=== PATIENT | male | born 1985 | race African-American/Black ===

== ENCOUNTER 2017-02-07 21:48 | Emergency (ER) | payer SELFPAY ==
[~2017-02-07] VITALS: Ht 195.6 cm; Wt 72.0 kg
[2017-02-07 21:51] VITALS: TEMP 37.2; Ht 195.6 cm; Wt 72.0 kg
[2017-02-07] MEDS ORDERED: PENICILLIN HOME PACK 500MG (4 DOSES)BTL PO STA (22:09)
[2017-02-07] MEDS ORDERED: PENI500T2 PO (22:15)
[2017-02-07] MEDS ORDERED: BENZ10GE38 DT (22:15)
[2017-02-07] MEDS ORDERED: TYLENOL #3 HOME PACK PO ONE (22:15)
--- NOTE | 2017-02-07 22:16 | EMERGENCY ROOM VISIT NOTE ---
ED Visit Note First contact with patient: 21:59 CHIEF COMPLAINT: Toothache HISTORY OF PRESENT ILLNESS: This 31-year-old male patient presented to the emergency department, ambulatory, with his family, with a progressive toothache for past 2 days. The patient believes it is coming from the left lower molar which is broken in half. The patient states the fracture happened approximately one year ago. The pain is now steady and severe and radiates to the face. The patient does not have a dentist appointment set up, but states he is planning to contact a dentist tomorrow. They rate their pain a 10/10 and the ibuprofen and Tylenol they have been taking has not relieved the pain. Denies facial swelling or fever. The patient denies any discharge from the mouth. REVIEW OF SYSTEMS: A 6 system review of systems was completed with positives and pertinent negatives listed in the HPI. ALLERGIES: None MEDICATIONS: None PMH: None SOCIAL HISTORY: The patient lives locally with family. He denies drug, alcohol , tobacco use. PHYSICAL EXAM: Vitals are noted on the nurse's note and reviewed by myself. Vital signs stable. Temperature 37.2C orally. GENERAL: This is a 31-year-old black male, in no acute distress, nondiaphoretic, well-developed well- nourished. Mouth: The #18 tooth is very carious and the gum is swollen and tender around it, without any discharge. The tooth is broken in half, and half of it is no longer present. There is some swelling of the gum surrounding the tooth, but no obvious abscess or drainage. The remainder of the pharynx and tonsils are without erythema, edema, or exudate. The airway is patent. There is no facial swelling, cervical or submandibular lymphadenopathy. The patient appears uncomfortable and in pain. The patient has overall poor dental hygiene. EARS: External auditory canals clear, tympanic membranes pearly storey without erythema or effusion bilaterally. ED COURSE: The patient was seen and evaluated as above. I did apply benzocaine to the tooth and gum to help with pain relief. Discussion with the patient regarding the importance of follow-up with a dentist, and the patient understands. The patient was provided with a prescription for Tylenol with Codeine as well as penicillin. The patient was given home packs of these medications and a prescription for penicillin and benzocaine. The patient was discharged home in good condition. I attest that I have personally reviewed the patient's current medication list. Patient was found to have normal blood pressure on screening and does not require follow-up. DIFFERENTIAL DIAGNOSIS: Dental abscess, odontalgia, acute sinusitis, acute otitis media, cellulitis, malignancy, and others DIAGNOSIS: Dental abscess, odontalgia DISCHARGE INSTRUCTIONS & TREATMENT: You have been treated in the Emergency Department for Dental Pain. You have been prescribed Tylenol #3 to be used for pain control. This is a narcotic medication. You cannot drive or consume alcohol while on this medicine. This medicine should only be used for pain that cannot be controlled with [id number]-[id number] pain medicines. You were prescribed Pen-V K to be taken 4 times daily. This is an antibiotic. All antibiotics have the potential to cause diarrhea. Stop this medication and contact a medical provider if you were to develop any significant adverse side effects including: wheezing, shortness of breath, passing out, vomiting, or a diffuse rash. Always take antibiotics as directed and COMPLETE the ENTIRE course regardless of the improvement of your symptoms. For pain control, you can use the following fher-vtm-tsqqgzq medicines (if >12 yo): Ibuprofen(Motrin, Advil) may be used for fever or pain. Use 600mg every six hours as needed. Take with food. Avoid using more than 2400mg in a 24 hour period. Do not use 2400mg per day for more than three consecutive days without physician direction. Prolonged inappropriate use can lead to stomach upset or ulcers. (AND/OR) Acetaminophen(Tylenol) may be used for fever or pain. Use 1000mg every six hours as needed. Avoid using more than 3000mg in a 24 hour period. Refrain from smoking cigarettes or using chewing tobacco until you have been evaluated by your dentist. Keeping beverages lukewarm and consuming soft foods can decrease your pain. Warm compresses over the affected area may offer some relief. You MUST seek evaluation of your dental pain by a dentist following your visit to the Emergency Department. The Emergency Department is not capable of treating dental issues long-term. You should call your dentist as soon as possible to make an appointment for evaluation of your dental pain. Return to the emergency department if you develop the following symptoms despite treatment course outlined above: fever, intractable pain, increased redness, swelling, or purulent discharge. Current/Historical Medications Scheduled Penicillin V Potassium (Veetids), 1 TAB PO QID Scheduled PRN Benzocaine (Dental) (Anbesol), 1 APPLN DT QID PRN for Pain Allergies Coded Allergies: No Known Allergies (Unverified , 02/07/17) Vital Signs Date Time Temp Pulse Resp B/P (MAP) Pulse Ox O2 Delivery O2 Flow Rate FiO2 02/07/17 22:37 67 20 142/79 96 Room Air 02/07/17 21:51 37.2 70 18 146/86 96 Room Air Medications Administered Medications (Trade) Dose Ordered Sig/Jordan Route Start Time Stop Time Status Last Admin Dose Admin Acetaminophen/ Codeine Phosphate (TYLENOL W/ CODEINE #3 Home Pack) 1 homepack UD ONCE PO 02/07/17 22:15 02/07/17 22:16 DC 02/07/17 22:37 1 HOMEPACK Penicillin V Potassium (Pen-Vk 500MG Home Pack) 1 homepack UD STAT PO 02/07/17 22:09 02/07/17 22:13 DC 02/07/17 22:36 1 HOMEPACK Departure Information Impression Primary Impression: Periapical abscess Dispostion Home / Self-Care Condition GOOD Prescriptions Benzocaine (Dental) (ANBESOL) 10 % Gel 1 APPLN DT QID Y for Pain, #1 TUBE Prov: Judie Page PA-C 02/07/17 Penicillin V Potassium (VEETIDS) 500 Mg Tab 1 TAB PO QID for 10 Days, #40 TAB Prov: Judie Page PA-C 02/07/17 Patient Instructions ED [facility] Additional Instructions You have been treated in the Emergency Department for Dental Pain. You have been prescribed Tylenol #3 to be used for pain control. This is a narcotic medication. You cannot drive or consume alcohol while on this medicine. This medicine should only be used for pain that cannot be controlled with prfn-ufv-faqvzti pain medicines. You were prescribed Pen-V K to be taken 4 times daily. This is an antibiotic. All antibiotics have the potential to cause diarrhea. Stop this medication and contact a medical provider if you were to develop any significant adverse side effects including: wheezing, shortness of breath, passing out, vomiting, or a diffuse rash. Always take antibiotics as directed and COMPLETE the ENTIRE course regardless of the improvement of your symptoms. For pain control, you can use the following ojsh-mvu-vhprgxz medicines (if >12 yo): Ibuprofen(Motrin, Advil) may be used for fever or pain. Use 600mg every six hours as needed. Take with food. Avoid using more than 2400mg in a 24 hour period. Do not use 2400mg per day for more than three consecutive days without physician direction. Prolonged inappropriate use can lead to stomach upset or ulcers. (AND/OR) Acetaminophen(Tylenol) may be used for fever or pain. Use 1000mg every six hours as needed. Avoid using more than 3000mg in a 24 hour period. Refrain from smoking cigarettes or using chewing tobacco until you have been evaluated by your dentist. Keeping beverages lukewarm and consuming soft foods can decrease your pain. Warm compresses over the affected area may offer some relief. You MUST seek evaluation of your dental pain by a dentist following your visit to the Emergency Department. The Emergency Department is not capable of treating dental issues long-term. You should call your dentist as soon as possible to make an appointment for evaluation of your dental pain. Return to the emergency department if you develop the following symptoms despite treatment course outlined above: fever, intractable pain, increased redness, swelling, or purulent discharge.
[2017-02-07 22:37] VITALS: BP 142/79; PULSE 67; O2SAT 96
== END 2017-02-07 22:37 | disposition home or self-care (01) ==
LOC: C.EDB 21:49 → C.EDD 22:37
DX: K04.7 Periapical abscess without sinus (principal)